=== PATIENT | female | born 1950 | race Caucasian/White ===

== ENCOUNTER → 2022-02-11 | Outpatient (CLI) | payer MEDICARE, OTHER, SELFPAY ==
--- NOTE | 2022-02-11 12:18 | MRI_ITS ---
STUDY: MRI THORACIC SPINE WITHOUT CONTRAST REASON FOR EXAM: Female, 71 years old. trouble walking Diabetes, polyneuropathy TECHNIQUE: Standardized fat and water weighted pulse sequences were obtained in the sagittal and axial planes. COMPARISON: None. FINDINGS: Normal kyphosis of the thoracic spine. There is no substantial scoliosis. T1-2, T2-3, T3-4, T4-5, T7-8, T8-9, T9-10, T11-12: Loss of intervertebral disc height. There is endplate spondylosis of the vertebral body. Normal central canal and intervertebral neuroforamina. There is bilateral facet arthropathy. T5-6: Left paracentral disc bulge. No spinal stenosis. T6-7: Central disc herniation measures 2.7 mm. No spinal stenosis. T10-11: Right paracentral disc herniation. This is causing right neural foraminal stenosis. No spinal stenosis. Normal visualized thoracic cord. Normal conus medullaris that terminates at the . The soft tissue structures are unremarkable. MRI/Spine Thoracic (Routine) IMPRESSION: Degenerative findings in the thoracic spine. T6-7: Central disc herniation measures 2.7 mm. No spinal stenosis. T10-11: Right paracentral disc herniation. This is causing right neural foraminal stenosis. No spinal stenosis. Electronically Signed: Esteban Linder MD at 15:06 EDT Reading Location ID and State: [facility] / [place] , Service support ,
== END | disposition home or self-care (01) ==
LOC: MRI 12:17
PROVIDERS: PCP Family Medicine; Visit Provider Orthopaedic Surgery
DX: E11.42 Type 2 diabetes mellitus with diabetic polyneuropathy (principal)
CPT/HCPCS: 72146